=== PATIENT | male | born 1935 | race Caucasian/White ===

== ENCOUNTER → 2018-06-03 | Outpatient (CLI) | payer OTHER ==
[~2018-06-03] MED LIST: ALAVERT10 M1 PO; ALAVERT10 MG PO; APAP500; ASA81BEC PO; AZOR 5-40 MG T1 EACH PO; CENTRUM SILVER1 EAC1 PO; EFFIENT10 MG PO; FINASTERIDE5 MG PO; GLUCOPHAGE500 MG PO; HYTRIN 5 M5 MG/1 CAP PO; LIPITOR40 MG PO; MAXZIDE 75-501 EACH PO; NIFEDICAL XL60 MG PO
== END ==
LOC: CAT 09:39
DX: I25.10 Atherosclerotic heart disease of native coronary artery without angina pectoris (principal); R91.1 Solitary pulmonary nodule

== ENCOUNTER 2018-09-11 06:47 | Observation (INO) | payer OTHER ==
[~2018-09-11] VITALS: Ht 170.2 cm; Wt 94.3 kg
--- NOTE | ~2018-09-11 | EKG ---
[address] [address] ELECTROCARDIOGRAM REPORT Name: WILDER DESAI Room #: 212-[facility]#: [id number] Admission: 09/11/18 Attend Phys: Arnol Van MD, Discharge: 09/12/18 Date of : 39 Report #: [id number] THIS REPORT FOR: //name// [facility] Test Date: 2018-09-11 Test Time: 10:22:34 Pat Name: WILDER DESAI Department: Room: [facility] Gender: M Geoint Analyst: LAMBERTO : 1935 Requested By: Arnol Van Order Number: [id number] MD: Be Richey Measurements Intervals [place] Rate: 48 P: 42 [place]: 211 QRS: 54 QRSD: 95 T: 41 QT: 459 QTc: 411 Interpretive Statements Sinus bradycardia Abnormal R-wave progression, early transition Compared to ECG 11/30/2010 09:26:11 Sinus rhythm no longer present Electronically Signed On 09-13-2018 20:15:51 HUB CUTTER by Be Richey [email or web address] <ELECTRONICALLY SIGNED> By: Be Richey MD 09/13/182014 21 102 Be Richey MD /EPI
--- NOTE | ~2018-09-11 | CATHLAB ---
[facility] [place] [address] INVASIVE PROCEDURE REPORT Name: WILDER DESAI Room #: 212-[facility] .R.#: [id number] Admission: 09/11/18 Attend Phys: Arnol Van, Discharge: Date of : 39 Date of Service: 09/11/18 1659 Report #: [id number] THIS REPORT FOR: //name// APPROVED REPORT Study performed: 09/11/2018 07:43:20 Patient Details Patient Status: Out-Patient Room #: The patient is a 82 year-old male Event Personnel Arnol Van Motor Vehicle Representative, Isael Rain RN, Coni Valdez RT(R)() Scrub, Chapis Valadez RTR, FRANKLIN Scrub, Hernán Doty Monitor Procedures Performed Left Heart Cath w/or w/o Coronaries [id number] [facility] Aortogram Abdominal Peripheral Angio 417740 [facility]JA Place w/wo Plasty Single RCA [id number] Indication Chest pain Procedure Narrative The Right Groin^ was infiltrated with 1% Lidocaine subcutaneous anesthesia. A PINNACLE 6FR Sheath #[id number] sheath was inserted into the RFA^. Coronary angiography was performed using coronary diagnostic catheters. The right coronary system was accessed and visualized with a JR4 catheter. The left coronary system was accessed and visualized with a JL4 catheter. The left ventricle was accessed and visualized with a PIGTAIL catheter. Left ventriculogram was performed in 30 degree projection. An aortogram of the ascending aorta was performed. Closure device was deployed with a 6 Fr MYNXGRIP 6/7F #[id number]. The patient tolerated the procedure well and there were no complications associated with the procedure. There was no hematoma. Intraoperative Conscious Sedation Sedation start time: 8.39 Case end Time: 9.37 Fentanyl 100 mcg Versed 2 mg Fluoro Time: 7.03 minutes Dose: DAP 86666 cGycm2 1492 mGy [facility] [place] [address] INVASIVE PROCEDURE REPORT Name: WILDER DESAI Room #: 212-[facility] M.R.#: [id number] Admission: 09/11/18 Attend Phys: Arnol Van, Discharge: Date of : 39 Date of Service: 09/11/18 1659 Report #: [id number] Contrast Type and Amount: Visipaque 165 ml Hemodynamics The aortic pressure is 113/55 mmHg with a mean of 77 mmHg. The left ventricular pressure is 116/4 mmHg with a mean of mmHg. PCI Technique Lesion Percutaneous coronary intervention was performed on the mistal right coronary artery. A LAUNCHER 6FR JR 4 #[id number] Guide Catheter was used to engage the ostium. A Luge Wire .014 x 182CM #[id number] Interventional Guidewire was used to cross the lesion. BALLOON DILATION A Balloon catheter Sprinter OTW 2.5 x 12 #[id number] was inserted and inflated up to 12.00atm for 22seconds. Additional Inflation: 12.00atm for 32seconds. STENT DEPLOYMENT A drug-eluting stent XIENCE BRYANT RX 3.0 X 12 #[id number] was inserted and inflated up to 18.00atm for 35seconds. POST STENT DEPLOYMENT BALLOON DILATION A Balloon catheter TREK NC RX 3.25 X 8 #[id number] was inserted and inflated up to 18.00atm for 30seconds. Additional Inflation: 20.00atm for 34seconds. Conclusion #1 successful PTCA stent of a distal dominant RCA lesion 95% to 0 with placement of a 30 by 12 C echo drug-eluting stent postdilated 3.4 mm. CAMERON grade 3 flow #2 short left main mildly calcified giving rise to LAD and circumflex #3 LAD proximal calcification mild in-stent restenosis and proximal previously placed stents mild diffuse disease #4 ramus intermedius with a 60% proximal lesion will follow #5 circumflex OM mild disease #6 normal left ventricular size and systolic function EF 60% #7 abdominal aorta is mildly ectatic renal arteries and iliac system mildly diseased no aneurysm Recommendations and plan continue aggressive risk factor [facility] [address] [place] [address] INVASIVE PROCEDURE REPORT Name: WILDER DESAI Room #: 212-[facility] .R.#: [id number] Admission: 09/11/18 Attend Phys: Arnol Van, Discharge: Date of : 39 Date of Service: 09/11/18 1659 Report #: [id number] modification. Dual antiplatelet therapy one year. Transfer to [facility] to follow stent protocol. <ELECTRONICALLY SIGNED> By: Arnol Van MD, FACC 09/11/181658 58 58 Arnol Van MD, FACC /INF
--- NOTE | ~2018-09-11 | EKG ---
[address] [address] ELECTROCARDIOGRAM REPORT Name: WILDER DESAI Room #: 212[facility].#: [id number] Admission: 09/11/18 Attend Phys: Arnol Van MD, Discharge: 09/12/18 Date of : 39 Report #: [id number] THIS REPORT FOR: //name// [facility] Test Date: 2018-09-12 Test Time: 07:48:04 Pat Name: WILDER DESAI Department: Room: 212 Gender: M Financial Intern: : 1935 Requested By: Sandi Varner Order Number: [id number] MD: Be Richey Measurements Intervals [place] Rate: 55 P: 46 [place]: 186 QRS: 57 QRSD: 87 T: 46 QT: 423 QTc: 405 Interpretive Statements Sinus rhythm Compared to ECG 11/30/2010 09:26:11 No significant changes Electronically Signed On 09-13-2018 20:30:23 EDUCATION ADMINISTRATOR by Be Richey [email or web address] <ELECTRONICALLY SIGNED> By: Be Richey MD 09/13/182029 7 7 Be Richey MD /ANASTASIA
[2018-09-11 07:15] VITALS: BP 127/57
[2018-09-11 07:21] LABS: HEMATOCRIT 39.3 % (42.0-52.0); HEMOGLOBIN 13.2 gm/dL (14.0-18.0); MCH 30.8 pg (26.0-34.0); MCHC 33.6 g/dL (28.0-37.0); MCV 91.7 fL (80.0-100.0); RBC 4.29 mil/uL (4.50-6.00); RDW 13.7 % (10.5-14.5); WBC 6.8 thou/uL (4.0-11.0)
[2018-09-11] MEDS ORDERED: BENICAR20 MG PO (07:25)
[2018-09-11] MEDS ORDERED: GLUCOTROL5 MG PO (07:29)
[2018-09-11] MEDS ORDERED: HYDROCHLOROTH12.5 M1 PO (07:30)
[2018-09-11] MEDS ORDERED: TERAZOSIN HCL5 MG PO (07:31)
[2018-09-11 07:32] LABS: CALCIUM 9.3 mg/dL (8.5-10.1); CREATININE 1.3 mg/dL (0.7-1.3); POTASSIUM 3.7 mmol/L (3.5-5.1)
[2018-09-11] MEDS ORDERED: ASA5UEC PO (09:32)
[2018-09-11] MEDS ORDERED: CLOPIDOGREL75 MG PO (09:32)
[2018-09-11 12:48] VITALS: BP 139/77
[2018-09-11 16:58] VITALS: BP 123/72
[2018-09-11 20:05] VITALS: BP 154/66
[2018-09-12 00:24] VITALS: BP 144/64
[2018-09-12 04:08] VITALS: BP 131/46
[2018-09-12 04:33] LABS: HEMATOCRIT 37.7 % (42.0-52.0); HEMOGLOBIN 12.8 gm/dL (14.0-18.0); MCH 30.9 pg (26.0-34.0); MCV 90.7 fL (80.0-100.0); RBC 4.16 mil/uL (4.50-6.00); RDW 13.5 % (10.5-14.5); WBC 7.4 thou/uL (4.0-11.0)
[2018-09-12 04:57] LABS: ALBUMIN 3.4 g/dL (3.4-5.0); CALCIUM 8.8 mg/dL (8.5-10.1); CREATININE 1.1 mg/dL (0.7-1.3); POTASSIUM 3.7 mmol/L (3.5-5.1); TOTAL BILIRUBIN 0.7 mg/dL (<0.1-1.0); TOTAL PROTEIN 6.6 g/dL (6.4-8.2); TROPONIN-I 0.46 ng/mL (<0.06)
[2018-09-12 07:21] VITALS: BP 134/76
[2018-09-12 11:09] VITALS: BP 134/76
== END 2018-09-12 11:31 | disposition home or self-care (01) ==
LOC: CATH 06:47 → 2N 10:46
PROVIDERS: Internal Medicine Cardiovascular Disease; Nurse Practitioner Adult Health
DX: I25.10 Atherosclerotic heart disease of native coronary artery without angina pectoris (principal); I10 Essential (primary) hypertension; E78.5 Hyperlipidemia, unspecified; E11.9 Type 2 diabetes mellitus without complications; I65.29 Occlusion and stenosis of unspecified carotid artery; J45.909 Unspecified asthma, uncomplicated; I87.2 Venous insufficiency (chronic) (peripheral); G47.33 Obstructive sleep apnea (adult) (pediatric); E78.00 Pure hypercholesterolemia, unspecified; Z98.890 Other specified postprocedural states; Z95.5 Presence of coronary angioplasty implant and graft; Z79.82 Long term (current) use of aspirin; Z79.899 Other long term (current) drug therapy; Z79.02 Long term (current) use of antithrombotics/antiplatelets; Z85.51 Personal history of malignant neoplasm of bladder; Z88.0 Allergy status to penicillin

== ENCOUNTER → 2019-12-06 | Outpatient (CLI) | payer OTHER ==
[~2019-12-06] MED LIST changes: +ASA5UEC PO; +BENICAR20 MG PO; +CLOPIDOGREL75 MG PO; +GLUCOTROL5 MG PO; +HYDROCHLOROTH12.5 M1 PO; +TERAZOSIN HCL5 MG PO
== END ==
LOC: SJCVC 15:35
DX: R94.31 Abnormal electrocardiogram [ECG] [EKG] (principal); I25.10 Atherosclerotic heart disease of native coronary artery without angina pectoris; I70.1 Atherosclerosis of renal artery; E78.00 Pure hypercholesterolemia, unspecified; I10 Essential (primary) hypertension; I65.23 Occlusion and stenosis of bilateral carotid arteries; G47.33 Obstructive sleep apnea (adult) (pediatric); Z95.5 Presence of coronary angioplasty implant and graft; Z79.899 Other long term (current) drug therapy

== ENCOUNTER → 2020-07-10 | Outpatient (CLI) | payer OTHER | LOC: SJCVCIMAG 09:03 | PROVIDERS: ATTEND Internal Medicine Cardiovascular Disease | DX: I35.1 Nonrheumatic aortic (valve) insufficiency (principal); I25.10 Atherosclerotic heart disease of native coronary artery without angina pectoris; I10 Essential (primary) hypertension; E78.00 Pure hypercholesterolemia, unspecified ==

== ENCOUNTER 2021-05-25 10:11 | Emergency (ER) | payer OTHER ==
[~2021-05-25] VITALS: Ht 172.7 cm; Wt 83.5 kg
[2021-05-25 10:55] LABS: ABSOLUTE NEUTROPHILS 9.9 thou/uL (1.4-8.2); BASOPHILS 0.4 % (0.0-2.0); HEMATOCRIT 36.5 % (42.0-52.0); HEMOGLOBIN 11.7 gm/dL (14.0-18.0); LYMPHOCYTES 7.3 % (24.0-44.0); MCH 28.9 pg (26.0-34.0); MCHC 32.2 g/dL (28.0-37.0); MCV 89.9 fL (80.0-100.0); MONOCYTES 6.7 % (1.0-8.0); PLATELET COUNT 312 thou/uL (150-400); POLYS 84.6 % (36.0-66.0); RBC 4.06 mil/uL (4.50-6.00); RDW 15.4 % (10.5-14.5); WBC 11.7 thou/uL (4.0-11.0)
[2021-05-25] MEDS ORDERED: CLOTRIMAZOLE 1%15 G1 TOP (10:57)
[2021-05-25] MEDS ORDERED: TAMSULOSIN HCL0.4 MG PO (10:57)
[2021-05-25] MEDS ORDERED: CLARITIN10 MG PO (10:59)
[2021-05-25 11:17] LABS: ANION GAP 13 mmol/L (7-16); BUN 32 mg/dL (7-18); CALCIUM 9.3 mg/dL (8.5-10.1); CHLORIDE 99 mmol/L (98-107); CO2 18 mmol/L (21-32); CREATININE 1.8 mg/dL (0.7-1.3); GLUCOSE 185 mg/dL (74-106); SODIUM 130 mmol/L (136-145)
[2021-05-25 11:25] LABS: ALBUMIN 3.2 g/dL (3.4-5.0); SGOT 37 U/L (15-37); SGPT 27 U/L (16-63); TOTAL PROTEIN 8.3 g/dL (6.4-8.2); TROPONIN-I <0.06 ng/mL (<0.06)
[2021-05-25 11:47] LABS: TOTAL BILIRUBIN 0.6 mg/dL (0.2-1.0)
[2021-05-25 15:18] VITALS: BP 130/76
--- NOTE | 2021-05-26 08:45 | EKG ---
[address] [address] [facility] [place] [address] ELECTROCARDIOGRAM REPORT Name: WILDER DESAI [id number] Admission: 05/25/21 Attend Phys: Discharge: 05/25/21 Date of : 39 Report #: [id number] [facility] ED Test Date: 2021-05-25 Test Time: 10:13:53 Pat Name: WILDER GISELLE Department: Room: Gender: M Ink Technician: SAGRARIO : 1935 Requested By: Claire Sanz Order Number: [id number] MD: Alonso Marti Measurements Intervals [place] Rate: 96 P: 107 [place]: 185 QRS: 83 QRSD: 91 T: 21 QT: 341 QTc: 431 Interpretive Statements Sinus rhythm Borderline right axis deviation Borderline ST elevation, anterior leads Compared to ECG 09/12/2018 07:48:04 ST (T wave) deviation now present Electronically Signed On 05-26-2021 8:45:15 CDT by Alonso Marti [email or web address] <ELECTRONICALLY SIGNED> By: Alonso Marti MD, [facility] 05/26/21 0845 1013 1013 Alonso Marti MD, FACC /EPI
== END 2021-05-25 15:30 | disposition home or self-care (01) ==
LOC: ER 10:11
PROVIDERS: Emergency Medicine
DX: U07.1 COVID-19 (principal); I10 Essential (primary) hypertension; E11.9 Type 2 diabetes mellitus without complications; I25.10 Atherosclerotic heart disease of native coronary artery without angina pectoris; J45.909 Unspecified asthma, uncomplicated; Z90.89 Acquired absence of other organs; Z79.899 Other long term (current) drug therapy; Z88.0 Allergy status to penicillin

== ENCOUNTER → 2021-06-27 | Outpatient (CLI) | payer OTHER ==
[~2021-06-27] MED LIST changes: +CLARITIN10 MG PO; +CLOTRIMAZOLE 1%15 G1 TOP; +TAMSULOSIN HCL0.4 MG PO
== END ==
LOC: SJCVC 16:58
PROVIDERS: ATTEND Internal Medicine Cardiovascular Disease
DX: I25.10 Atherosclerotic heart disease of native coronary artery without angina pectoris (principal); I10 Essential (primary) hypertension; E78.00 Pure hypercholesterolemia, unspecified; I77.9 Disorder of arteries and arterioles, unspecified; I35.0 Nonrheumatic aortic (valve) stenosis; J45.909 Unspecified asthma, uncomplicated; G47.33 Obstructive sleep apnea (adult) (pediatric); N40.0 Benign prostatic hyperplasia without lower urinary tract symptoms; Z85.51 Personal history of malignant neoplasm of bladder; Z86.16 Personal history of COVID-19; Z79.82 Long term (current) use of aspirin; Z79.84 Long term (current) use of oral hypoglycemic drugs; Z79.899 Other long term (current) drug therapy; Z88.0 Allergy status to penicillin